=== PATIENT | female | born 1985 | race Caucasian/White ===

== ENCOUNTER 2016-11-13 18:36 | Emergency (ER) | payer OTHER ==
[2016-11-13 18:51] VITALS: BP 136/84
--- NOTE | 2016-11-13 19:20 | UC ---
Back Pain HPI - HPI Summary HPI Summary: 30 yo female with right lower back pain x 1 1/2 weeks Initially intermittent but has been constant x 1 week worse with movement/twisting/bending/lifting hurts to lay flat on her back Pain radiates into right buttock no leg pain no bowel/bladder dysfunction pt works 50 hours/week a lot of lifitng on her feet all day - History of Current Complaint Chief Complaint: UCBackPain Stated Complaint: BACK PAIN, PREG Time Seen by Provider: 11/13/16 18:52 Hx Obtained From: Patient Hx Last Menstrual Period: 4 weeks ago ?: Yes Onset/Duration: Gradual Onset, Lasting Weeks Timing: Constant Severity Initially: Mild Severity Currently: Severe Pain Intensity: 7 Pain Scale Used: 0-10 Numeric Back Pain: Is Discrete @ Character: Dull, Aching, Spasmodic Aggravating: Movement, Lifting, Bending Alleviating: OTC Meds - tylenol use to help..no more Associated Signs And Symptoms: Positive: Negative - Allergies/Home Medications Allergies/Adverse Reactions: Allergies Allergy/AdvReac Type Severity Reaction Status Date / Time Cefaclor [From Ceclor] Allergy Intermediate Hives Verified 11/13/16 18:42 Penicillins Allergy Intermediate Hives Verified 11/13/16 18:42 Home Medications: Home Medications Vitamin TAB* 1 tab PO DAILY 11/13/16 [History Confirmed 11/13/16] PMH/Surg Hx/FS Hx/Imm Hx Previously Healthy: Yes Endocrine History Of: Denies: Diabetes, Thyroid Disease Cardiovascular History Of: Denies: Cardiac Disorders, Hypertension, Pacemaker/ICD Respiratory History Of: Denies: COPD, Asthma GI/ History Of: Denies: Ulcer - Surgical History Surgical History: Yes Surgery Procedure, Year, and Place: T&A - Family History Known Family History: Positive: Cardiac Disease, Hypertension, Other - thyroid dz - Social History Alcohol Use: None Substance Use Type: None Smoking Status (MU): Current Every Day Smoker Type: Cigarettes Amount Used/How Often: 1/2 PPD Length of Time of Smoking/Using Tobacco: 8 yrs Have You Smoked in the Last Year: Yes Household Exposure Type: Cigarettes - Immunization History Most Recent Influenza Vaccination: NONE Most Recent Tetanus Shot: UTD Most Recent Pneumonia Vaccination: None Hx Tetanus, Diphtheria Vaccination: Yes Vaccination Up to Date: Yes Review of Systems Constitutional: Negative Skin: Negative Eyes: Negative ENT: Negative Respiratory: Negative Cardiovascular: Negative Gastrointestinal: Negative Genitourinary: Negative Motor: Negative Neurovascular: Negative Musculoskeletal: Myalgia Neurological: Negative Psychological: Negative All Other Systems Reviewed And Are Negative: Yes Physical Exam Triage Information Reviewed: Yes Appearance: Well-Appearing, No Pain Distress, Well-Nourished Vital Signs: Initial Vital Signs Temp 97.3 F 11/13/16 18:43 Pulse 94 11/13/16 18:43 Resp 18 11/13/16 18:43 BP 136/84 11/13/16 18:43 Pulse Ox 100 11/13/16 18:43 Vital Signs Reviewed: Yes Eyes: Positive: Conjunctiva Clear ENT: Positive: Hearing grossly normal. Negative: Nasal congestion, Nasal drainage, Trismus, Muffled/hoarse voice Neck: Positive: Supple, Nontender, No Lymphadenopathy Respiratory: Positive: Lungs clear, Normal breath sounds, No respiratory distress, No accessory muscle use Cardiovascular: Positive: RRR, No Murmur. Negative: Tachycardia, Bradycardia Abdomen Description: Positive: Other: - gravid uterus, non tender. Negative: CVA Tenderness (R), CVA Tenderness (L) Musculoskeletal: Positive: Edema @ - some pretibial edema Neurological: Positive: Alert Psychological Exam: Normal Skin Exam: Normal Back Pain Course/Dx - Differential Dx/Diagnosis Provider Diagnoses: right lumbar myofascial strain/spasm Discharge - Discharge Plan Condition: Stable Disposition: HOME Prescriptions: HYDROcodone/ACETAMIN 5-325 MG* [[place] 5-325 TAB*] 1 tab PO Q4H PRN #12 tab MDD 2 PRN Reason: Pain Patient Education Materials: Back Pain (ED) Forms: *Work Release Referrals: Gisele Kovacs MD [Primary Care Provider] - Additional Instructions: I think that a few days off from work will be very beneficial see your OB in 5 days as planned recheck for worsening pain/fever/abd pain or contractions the vicodin has tylenol in it so don't take tylenol at the same time Images Front/Back of Body, Lg ([place]): 1 - tender here 2 - pain into buttock as well
== END 2016-11-13 19:38 | disposition home or self-care (01) ==
LOC: UCEAST 18:36
DX: O26.899 Other specified pregnancy related conditions, unspecified trimester (principal); Z3A.00 Weeks of gestation of pregnancy not specified; S39.012A Strain of muscle, fascia and tendon of lower back, initial encounter; X50.9XXA Other and unspecified overexertion or strenuous movements or postures, initial encounter; Y93.9 Activity, unspecified; Y92.9 Unspecified place or not applicable; Y99.0 Civilian activity done for income or pay; M62.830 Muscle spasm of back; Z88.1 Allergy status to other antibiotic agents; Z88.0 Allergy status to penicillin; F17.210 Nicotine dependence, cigarettes, uncomplicated
CPT/HCPCS: 81003; 99212; G0463

== ENCOUNTER 2016-12-14 22:31 | Emergency (ER) | payer OTHER ==
[2016-12-14 22:36] VITALS: BP 141/84
--- NOTE | 2016-12-15 00:54 | ED ---
- HPI Summary HPI Summary: Patient presents with intermittent abdominal cramping since yesterday. The episodes last seconds and resolve spontaneously. She denies vaginal bleeding, N/ V/D, SOB, CP, GALAN or fevers. The baby usually moves more when she drinks orange juice, but it didn't today so she became concerned. - History of Current Complaint Chief Complaint: EDOBProblems Stated Complaint: 25 WKS PREG/CRAMPING Time Seen by Provider: 12/14/16 23:48 Hx Obtained From: Patient Chief Complaint: Other: - cramping Onset/Duration: Started Days Ago - 2, Atraumatic Timing: Intermittent, Lasting Seconds Severity: Moderate Current Severity: None Pain Intensity: 8 Location of Pain: Diffuse Character: Cramping Aggravating Factors: Nothing Alleviating Factors: Nothing Associated Signs and Symptoms: Positive: Negative - Assessment Hx Now: Yes Heart Rate via Doppler: 146 SAB: 1 - Allergies/Home Medications Allergies/Adverse Reactions: Allergies Allergy/AdvReac Type Severity Reaction Status Date / Time Cefaclor [From Ceclor] Allergy Intermediate Hives Verified 12/14/16 22:37 Penicillins Allergy Intermediate Hives Verified 12/14/16 22:37 PMH/Surg Hx/FS Hx/Imm Hx Previously Healthy: Yes Endocrine/Hematology History: Denies: Hx Diabetes, Hx Thyroid Disease Cardiovascular History: Denies: Hx Hypertension, Hx Pacemaker/ICD Respiratory History: Denies: Hx Asthma, Hx Chronic Obstructive Pulmonary Disease (COPD) GI History: Denies: Hx Ulcer Sensory History: Denies: Hx Hearing Aid Psychiatric History: Denies: Hx Panic Disorder - Surgical History Surgery Procedure, Year, and Place: T&A Infectious Disease History: No Infectious Disease History: Denies: Hx Clostridium Difficile, Hx Hepatitis, Hx Human Immunodeficiency Virus (HIV), Hx of Known/Suspected MRSA, Hx Shingles, Hx Tuberculosis, Hx Known/ Suspected VRE, Hx Known/Suspected VRSA, History Other Infectious Disease, Traveled Outside the [place] in Last 30 Days - Family History Known Family History: Positive: Unknown, Cardiac Disease, Hypertension, Other - thyroid dz - Social History Occupation: Employed Full-time Lives: With Family Alcohol Use: None Substance Use Type: Reports: None Smoking Status (MU): Current Every Day Smoker Type: Cigarettes Amount Used/How Often: 1/2 PPD Length of Time of Smoking/Using Tobacco: 8 yrs Have You Smoked in the Last Year: Yes Cessation Counseling: Patient Advised to Stop Review of Systems Positive: Other - cramping All Other Systems Reviewed And Are Negative: Yes Physical Exam - Summary Physical Exam Summary: Maternal health evaluated heart tones, which were within normal limits, and no contractions were appreciated during evaluation. - Physical Exam Triage Information Reviewed: Yes Vital Signs Reviewed: Yes Appearance: Positive: Well-Appearing, No Pain Distress, Obese Skin: Positive: Warm, Skin Color Reflects Adequate Perfusion, Dry, Soft Head/Face: Positive: Normal Head/Face Inspection Eyes: Positive: EOMI, DAMI, Conjunctiva Clear ENT: Positive: Hearing grossly normal Respiratory/Lung Sounds: Positive: Clear to Auscultation, Breath Sounds Present Cardiovascular: Positive: RRR Abdomen Description: Positive: Nontender, Soft Bowel Sounds: Positive: Present Musculoskeletal: Negative: Edema Left, Edema Right Neurological: Positive: Sensory/Motor Intact, Alert, Oriented to Person Place, Time, NV Bundle Intact Distally Psychiatric: Positive: Affect/Mood Appropriate AVPU Assessment: Alert Diagnostics - Vital Signs Vital Signs Temp Pulse Resp BP Pulse Ox 12/14/16 22:33 96.9 F 110 15 141/84 100 - Laboratory Lab Statement: Any lab studies that have been ordered have been reviewed, and results considered in the medical decision making process. Course/Dx - Differential Diagnosis/HQI/PQRI: Threatened , /Embryonic Demise, Placenta Previa, Late , Pre-term Labor, Vaginal Bleeding - Diagnoses Provider Diagnoses: with abdominal cramping of lower quadrant, antepartum Discharge - Discharge Plan Condition: Stable Disposition: HOME Forms: *Work Release Referrals: Gisele Kovacs MD [Primary Care Provider] - Additional Instructions: Please call your NET W[facility]ER tomorrow morning to discuss your visit and whether you need further evaluation. Return to the emergency department if symptoms worsen.
== END 2016-12-15 00:50 | disposition home or self-care (01) ==
LOC: ED 22:31
DX: O26.92 Pregnancy related conditions, unspecified, second trimester (principal); Z3A.25 25 weeks gestation of pregnancy; F17.210 Nicotine dependence, cigarettes, uncomplicated
CPT/HCPCS: 99281

== ENCOUNTER 2017-03-10 11:36 | Inpatient (IN) | payer OTHER ==
[2017-03-10 12:05] LABS: ROM Internal QC QC Line Present
[2017-03-10] MEDS ORDERED: Misoprostol TAB* 100 MCG PO ONE (13:20)
[2017-03-10 13:41] LABS: Hematocrit 36 % (35-47); Mean Corpuscular HGB Conc 33 g/dl (31-36); Mean Corpuscular Hemoglobin 30 pg (27-31); Mean Corpuscular Volume 90 fL (80-97); Mean Platelet Volume 10 um3 (7.4-10.4); Red Blood Count 4.06 10^6/ul (4.0-5.4); Red Cell Distribution Width 13 % (10.5-15); White Blood Count 15.5 10^3/ul (3.5-10.8)
[2017-03-10] MEDS ORDERED: Oxytocin in LR* 20 UNITS/1,000 ML BAG IVPB ONE (19:54)
[2017-03-10] MEDS ORDERED: Oxytocin in LR* 20 UNITS/1,000 ML BAG IVPB SCH (20:00)
[2017-03-10] MEDS ORDERED: OBEPIDURAL* 250 ML ONE (22:57)
[2017-03-11] MEDS ORDERED: Phenylephrine IV* 40 MCG/ML 10 ML SYRINGE IV PUSH PRN ×2 (00:31)
[2017-03-11] MEDS ORDERED: EPHEDrine (Pressors)* 50 MG/ML VIAL IV PUSH PRN ×2 (00:31)
[2017-03-11] MEDS ORDERED: Hetastarch in NS* 200 ML IV PRN (00:31)
[2017-03-11] MEDS ORDERED: OBEPIDURAL* 250 ML EPIDURAL SCH (01:00)
[2017-03-11] MEDS ORDERED: Misoprostol TAB* 200 MCG ONE (08:30)
[2017-03-11] MEDS ORDERED: Acetaminophen TAB* 325 MG PO PRN (08:37)
[2017-03-11] MEDS ORDERED: Witch Hazel PAD* JAR TOPICAL PRN (08:37)
[2017-03-11] MEDS ORDERED: Misoprostol TAB* 200 MCG PR ONE (08:37)
[2017-03-11] MEDS ORDERED: Glycerin ADULT SUPP PR PRN (08:37)
[2017-03-11] MEDS ORDERED: Oxytocin in LR* 20 UNITS/1,000 ML BAG IVPB SCH (09:00)
[2017-03-11] MEDS: Docusate CAP* 100 MG PO SCH ×3 (11:38→21:42)
[2017-03-11] MEDS: Prenatal Vitamin TAB PO SCH (11:38)
[2017-03-11] MEDS ORDERED: Simethicone CHEW TAB* 80 MG PO SCH (12:30)
[2017-03-11] MEDS: Ibuprofen TAB* 600 MG PO PRN ×2 (12:54→21:42)
[2017-03-11] MEDS: Dibucaine 1% 28.35 GM TUBE PR PRN (21:48)
[2017-03-12] MEDS: Ibuprofen TAB* 600 MG PO PRN ×3 (04:13→16:11)
[2017-03-12 06:40] LABS: Hematocrit 24 % (35-47); Hemoglobin 7.9 g/dl (12.0-16.0); Mean Corpuscular HGB Conc 33 g/dl (31-36); Mean Corpuscular Hemoglobin 30 pg (27-31); Mean Corpuscular Volume 90 fL (80-97); Mean Platelet Volume 9 um3 (7.4-10.4); Red Blood Count 2.64 10^6/ul (4.0-5.4); Red Cell Distribution Width 13 % (10.5-15); White Blood Count 16.2 10^3/ul (3.5-10.8)
[2017-03-12] MEDS: Docusate CAP* 100 MG PO SCH ×3 (10:06→22:34)
[2017-03-12] MEDS: Prenatal Vitamin TAB PO SCH (10:07)
[2017-03-12] MEDS: Ferrous Gluconate TAB* 324 MG TAB PO SCH ×2 (10:07→22:34)
[2017-03-12] MEDS: Dibucaine 1% 28.35 GM TUBE PR PRN (22:40)
[2017-03-13] MEDS: Ibuprofen TAB* 600 MG PO PRN ×2 (00:09→09:09)
[2017-03-13 07:51] VITALS: BP 108/74
[2017-03-13] MEDS: Ferrous Gluconate TAB* 324 MG TAB PO SCH (09:09)
[2017-03-13] MEDS: Docusate CAP* 100 MG PO SCH (09:09)
[2017-03-13] MEDS: Prenatal Vitamin TAB PO SCH (09:10)
== END 2017-03-13 10:55 | disposition home or self-care (01) | DRG 560 ==
LOC: MCHOBOUT 11:36 → MCHOB 12:22
PROVIDERS: ADMIT Obstetrics & Gynecology; ATTEND Obstetrics & Gynecology
PROC: 10E0XZZ Delivery of Products of Conception, External Approach (ICD-10-PCS; principal; 2017-03-11)
DX: O42.92 Full-term premature rupture of membranes, unspecified as to length of time between rupture and onset of labor (principal); O72.1 Other immediate postpartum hemorrhage; Z68.41 Body mass index [BMI] 40.0-44.9, adult; E66.01 Morbid (severe) obesity due to excess calories; O99.344 Other mental disorders complicating childbirth; O70.0 First degree perineal laceration during delivery; O99.334 Smoking (tobacco) complicating childbirth; F17.210 Nicotine dependence, cigarettes, uncomplicated; O99.214 Obesity complicating childbirth; F41.9 Anxiety disorder, unspecified; D64.9 Anemia, unspecified; O90.81 Anemia of the puerperium; Z3A.37 37 weeks gestation of pregnancy; Z37.0 Single live birth
CPT/HCPCS: 36415; 84112; 85025; 86850; 86900; 86901; A9270-GY; S0191

== ENCOUNTER 2018-01-29 16:03 | Emergency (ER) | payer OTHER ==
[2018-01-29 16:49] LABS: Hematocrit 41 % (35-47); Hemoglobin 13.6 g/dl (12.0-16.0); Mean Corpuscular HGB Conc 33 g/dl (31-36); Mean Corpuscular Hemoglobin 28 pg (27-31); Mean Corpuscular Volume 85 fL (80-97); Platelet Count 365 10^3/ul (150-450); Red Blood Count 4.81 10^6/ul (4.0-5.4); Red Cell Distribution Width 14 % (10.5-15); White Blood Count 8.9 10^3/ul (3.5-10.8)
[2018-01-29 17:05] LABS: EGFR Non-African American 101.6 (>60)
--- NOTE | 2018-01-29 18:49 | RAD ---
HISTORY: Vaginal bleeding and positive test in a woman with an IUD COMPARISONS: CT abdomen pelvis April 20, 2016 TECHNIQUE: Multiple transverse and longitudinal ultrasound images were obtained of the pelvis using grayscale, color flow, spectral and M-mode sonographic imaging. FINDINGS: UTERUS: The uterus is normal in shape, size, contour, and echotexture measuring 8.8 x 3.5 x 4.6 cm. The intrauterine device is at the mid-level and lower uterine segment abutting the cervix. GESTATION: There is no intrauterine gestation or gestational sac seen. RIGHT OVARY: The right ovary measures 2.6 x 1.6 x 2.0 cm. LEFT OVARY: The left ovary measures 2.7 x 1.5 x 2.1 cm. IMPRESSION: 1. No intrauterine gestation or gestational sac visualized. Ectopic is not completely excluded particularly in the presence of persistent positive beta-hCG. 2. The intrauterine device is located at the lower uterine segment abutting the cervix.
[2018-01-29] MEDS ORDERED: Methotrexate* 25 MG/ML 4 ML VIAL IM ONE (19:00)
[2018-01-29 20:55] VITALS: BP 138/85
--- NOTE | 2018-02-02 07:52 | ED ---
Solomon Alvarez Angela, scribed for Mitchel Egan MD on 01/29/18 at 1622 . GI/ HPI - HPI Summary HPI Summary: This pt is a 32 y/o female, possibly , presenting to [facility] c/o vaginal bleeding for a few days now. Pt reports she took a test 11 days ago and was slight positive. Pt went to [facility] and was told she was slight positive as well. Pt had blood work done 8 days ago and 6 days ago. She was told her hormone levels stayed around the same both of these days. Pt was told to come to the ED as soon as possible after another blood work done yesterday to rule out ectopic . Pt c/o fatigue, mild abdominal cramping , and some back pain. Denies dysuria, fever, chills, diaphoresis. Pt has an IUD in place. IUD was placed approx 7 months ago (3 months after her daughter was born). She had a sonogram done and was told they couldn't find where the IUD is supposed to connect, but the IUD was visible. Pt reports her last period was on December 18 but states it was not a normal period. Denies FHx of ectopic or tubal . Pt is a current tobacco user but denies alcohol use. - History of Current Complaint Chief Complaint: EDVaginalBleeding Stated Complaint: CRAMPING Hx Obtained From: Patient Hx Last Menstrual Period: 4 weeks ago Onset/Duration: Started Days Ago, Still Present Timing: Lasting Days Current Severity: Mild Vaginal Bleeding Description: Bright Red Pain Intensity: 1 Location of Pain: Diffuse Associated Signs and Symptoms: Positive: Back Pain, Abdominal Pain, Other: - POS : fatigue. Negative: Fever, Dysuria, Chills Additional Signs & Symptoms: Positive: Vaginal Bleeding, Positive Test , IUD Aggravating Factor(s): Nothing Alleviating Factor(s): Nothing - Allergy/Home Medications Allergies/Adverse Reactions: Allergies Allergy/AdvReac Type Severity Reaction Status Date / Time cefaclor [From [facility]] Allergy Hives Verified 01/29/18 18:21 Penicillins Allergy Hives Verified 01/29/18 18:21 Home Medications: Home Medications NK [No Home Medications Reported] 01/29/18 [History Confirmed 01/29/18] PMH/Surg Hx/FS Hx/Imm Hx Endocrine/Hematology History: Denies: Hx Diabetes, Hx Thyroid Disease Cardiovascular History: Denies: Hx Hypertension, Hx Pacemaker/ICD Respiratory History: Denies: Hx Asthma, Hx Chronic Obstructive Pulmonary Disease (COPD) GI History: Denies: Hx Ulcer Sensory History: Denies: Hx Hearing Aid Psychiatric History: Denies: Hx Panic Disorder - Surgical History Surgery Procedure, Year, and Place: T&A Infectious Disease History: No Infectious Disease History: Denies: Hx Clostridium Difficile, Hx Hepatitis, Hx Human Immunodeficiency Virus (HIV), Hx of Known/Suspected MRSA, Hx Shingles, Hx Tuberculosis, Hx Known/ Suspected VRE, Hx Known/Suspected VRSA, History Other Infectious Disease, Traveled Outside the [place] in Last 30 Days - Family History Known Family History: Positive: Cardiac Disease, Hypertension, Other - thyroid dz Family History: No FHx of ectopic . - Social History Alcohol Use: None Substance Use Type: Reports: None Smoking Status (MU): Current Every Day Smoker Type: Cigarettes Amount Used/How Often: 1/2 PPD Length of Time of Smoking/Using Tobacco: 8 yrs Have You Smoked in the Last Year: Yes Review of Systems Positive: Fatigue. Negative: Fever, Chills, Skin Diaphoresis Negative: Erythema Negative: Sore Throat Negative: Chest Pain Negative: Shortness Of Breath, Cough Positive: Abdominal Pain - cramping. Negative: Vomiting, Nausea Genitourinary: Other - vaginal bleeding Negative: dysuria, hematuria Musculoskeletal: Other - back pain Negative: Myalgia, Edema Negative: Rash Neurological: Other - NEG: dizziness All Other Systems Reviewed And Are Negative: Yes Physical Exam - Summary Physical Exam Summary: Constitutional: Well-developed, Well-nourished, Alert. (-) Distressed Skin: Warm, Dry HENT: Normocephalic; Atraumatic Eyes: Conjunctiva normal Neck: Musculoskeletal ROM normal neck. (-) JVD, (-) Stridor, (-) Tracheal deviation Cardio: Rhythm regular, rate normal, Heart sounds normal; Intact distal pulses; The pedal pulses are 2+ and symmetric. Radial pulses are 2+ and symmetric. (-) Murmur Pulmonary/Chest wall: Effort normal. (-) Respiratory distress, (-) Wheezes, (-) Rales Abd: Soft, (-) Tenderness, (-) Distension, (-) Guarding, (-) Rebound Musculoskeletal: (-) Edema Lymph: (-) Cervical adenopathy Neuro: Alert, Oriented x3 Psych: Mood and affect Normal Triage Information Reviewed: Yes Vital Signs On Initial Exam: Initial Vitals Temp Pulse Resp BP Pulse Ox 97.8 F 88 18 130/95 99 01/29/18 16:05 01/29/18 16:05 01/29/18 16:05 01/29/18 16:05 01/29/18 16:05 Vital Signs Reviewed: Yes Diagnostics - Vital Signs Vital Signs Temp Pulse Resp BP Pulse Ox 01/29/18 16:05 97.8 F 88 18 130/95 99 - Laboratory Result Diagrams: 01/29/18 16:36 01/29/18 16:36 Lab Statement: Any lab studies that have been ordered have been reviewed, and results considered in the medical decision making process. - Ultrasound No standard instances Ultrasound Interpretation: Positive (See Comments) - Transvaginal US IMPRESSION : 1. No intrauterine gestation or gestational sac visualized. Ectopic is not completely excluded particularly in the presence of persistent positive beta-hCG. 2. The intrauterine device is located at the lower uterine segment abutting the cervix. Dr. Egan has reviewed this radiology report. Ultrasound Interpretation Completed By: Radiologist Re-Evaluation - Re-Evaluation First Eval Re-Evaluation Time: 17:18 Comment: I updated the pt on her results. GIGU Course/Dx - Course Assessment/Plan: Pt is a 32 y/o female, possibly , presenting to [facility] c /o vaginal bleeding for a few days now. Pt reports she took a test 11 days ago and was slight positive. [facility] and was told she was slight positive as well. Pt had blood work done and had her hormone levels stay the same. Pt was told to come to the ED as soon as possible after blood work. Pt c/o fatigue, mild abdominal cramping, and some back pain. Denies dysuria, fever, chills, diaphoresis. Labs shows beta HCG of 1204. Transvaginal US shows 1. No intrauterine gestation or gestational sac visualized. Ectopic is not completely excluded particularly in the presence of persistent positive beta-hCG. 2. The intrauterine device is located at the lower uterine segment abutting the cervix. I discussed pt care with Dr. Mireles, OB, who recommends Methotrexate to abort ectopic . Pt is to follow up on 02/02/18, with GINNY Day. Type and screen was also ordered for the pt. Pt will be discharged home with follow up from Dr. Mireles. - Diagnoses Provider Diagnoses: Ectopic - Physician Notifications Discussed Care Of Patient With: Jaida Mireles Time Discussed With Above Provider: 18:56 Instructed by Provider To: Other - I discussed pt care with GINNY Day, who recommends Methotrexate to abort ectopic . Pt is to follow up on Thursday with him. Discharge - Sign-Out/Discharge Documenting (check all that apply): Discharge/Admit/Transfer - Discharge - Discharge Plan Condition: Stable Disposition: HOME Patient Education Materials: Ectopic (DC) Referrals: No Primary Care Phys,NOPCP [Primary Care Provider] - Jaida Mireles MD [Medical Doctor] - Additional Instructions: Follow up with GINNY Day, on Thursday (02/02/18). RETURN TO THE EMERGENCY DEPARTMENT FOR CHANGING OR WORSENING SYMPTOMS. The documentation as recorded by the Solomon clement Angela accurately reflects the service I personally performed and the decisions made by me, Mitchel Egan MD.
== END 2018-01-29 20:46 | disposition home or self-care (01) ==
LOC: ED 16:03
DX: O00.90 Unspecified ectopic pregnancy without intrauterine pregnancy (principal); Z97.5 Presence of (intrauterine) contraceptive device; R53.83 Other fatigue; Z88.1 Allergy status to other antibiotic agents; Z88.0 Allergy status to penicillin; Z82.49 Family history of ischemic heart disease and other diseases of the circulatory system; F17.210 Nicotine dependence, cigarettes, uncomplicated
CPT/HCPCS: 36415; 76817; 80053; 84702; 85027; 86850; 86900; 86901; 96372; 99282; J9260

== ENCOUNTER 2018-04-28 11:11 | Emergency (ER) | payer MEDICAID ==
[2018-04-28 11:20] VITALS: BP 114/74
--- NOTE | 2018-04-28 11:48 | UC ---
Eye Complaint HPI - HPI Summary HPI Summary: A 32 y/o F presents to [facility] [place] c/o L eye pain onset two days ago and worsening. Pain described as burning. Associated sx: itching, discharge and erythema of L eye; swelling of L lower eyelid; mild rhinorrhea, mild cough. Denies ear pain. She states it hurts to have her eye open. Alleviating factors: closing her eye. She denies eye trauma but notes mowing the lawn a few days ago. She initially believed the eye pain sx were due to seasonal allergies. Denies taking daily medications. - History of Current Complaint Chief Complaint: UCEye Stated Complaint: EYE COMPLAINT Time Seen by Provider: 04/28/18 11:42 Hx Obtained From: Patient Hx Last Menstrual Period: on depo Onset/Duration: Gradual Onset, Lasting Days, Still Present Timing: Constant Severity Initially: Moderate Severity Currently: Moderate Pain Intensity: 6 Pain Scale Used: 0-10 Numeric Location of Injury: Conjunctiva, Eye Lid (lower) Alleviating Factor(s): Other - closing her L eye Associated Signs And Symptoms: Positive: Drainage (Clear), Swelling - L lower eye lid - Allergies/Home Medications Allergies/Adverse Reactions: Allergies Allergy/AdvReac Type Severity Reaction Status Date / Time cefaclor [From [facility]] Allergy Hives Verified 04/28/18 11:20 Penicillins Allergy Hives Verified 04/28/18 11:20 PMH/Surg Hx/FS Hx/Imm Hx Previously Healthy: Yes Other Cardiovascular History: neg: HTN Other Respiratory History: neg: COPD - Surgical History Surgical History: Yes Surgery Procedure, Year, and Place: T&A - Family History Known Family History: Positive: Cardiac Disease, Hypertension, Other - thyroid dz Family History: No FHx of ectopic . - Social History Occupation: Employed Full-time Lives: With Family Alcohol Use: None Substance Use Type: None Smoking Status (MU): Light Every Day Tobacco Smoker Type: Cigarettes Amount Used/How Often: 1/2 PPD Length of Time of Smoking/Using Tobacco: 8 yrs Have You Smoked in the Last Year: Yes Household Exposure Type: Cigarettes - Immunization History Most Recent Influenza Vaccination: NONE Most Recent Tetanus Shot: UTD Most Recent Pneumonia Vaccination: None Hx Tetanus, Diphtheria Vaccination: Yes Vaccination Up to Date: Yes Review of Systems Constitutional: Other - neg: fever Eyes: Drainage - L eye, Eye Redness - L eye, Other - pos: L lower eyelid swelling; L eye itching and pain ENT: Nasal Discharge, Other - neg: ear pain Respiratory: Cough All Other Systems Reviewed And Are Negative: Yes Physical Exam - Summary Physical Exam Summary: General: well-appearing, no pain distress Skin: warm, color reflects adequate perfusion, dry Head: normal Eyes: EOMI, DAMI, sclera injected in L eye, L lower eyelid has minimal swelling , no erythema in eyelid ENT: normal Neck: supple, nontender Respiratory: CTA, breath sounds present Cardiovascular: RRR Abdomen: soft, nontender Bowel: present Musculoskeletal: normal, strength/ROM intact Neurological: sensory/motor intact, A&O x3 Psychological: affect/mood appropriate Triage Information Reviewed: Yes Vital Signs: Initial Vital Signs Temp 98.1 F 04/28/18 11:16 Pulse 83 04/28/18 11:16 Resp 18 04/28/18 11:16 BP 114/74 04/28/18 11:16 Pulse Ox 99 04/28/18 11:16 Vital Signs Reviewed: Yes Eye Complaint Course/Dx - Course Course Of Treatment: BP noted. Medications reviewed. Allergies noted. NO F/B ON EXAM. F/U OPHTHALMOLOGY IF NOT IMPROVED. - Differential Dx/Diagnosis Provider Diagnoses: CONJUNCTIVITIS Discharge - Sign-Out/Discharge Documenting (check all that apply): Patient Departure - DC All imaging exams completed and their final reports reviewed: No Studies - Discharge Plan Condition: Stable Disposition: HOME Prescriptions: Ketotifen Fumarate [Allergy Eye Drops] 1 drop OP TID #5 ml Tobramycin 0.3% OPHTH.MUKUND* 1 drop LEFT EYE Q4H #1 btl Patient Education Materials: Conjunctivitis (ED) Referrals: [facility] PH[facility]ICIAN REFERRAL [Outside] German De Leon MD [Medical Doctor] - Additional Instructions: FOLLOW UP WITH YOUR PRIMARY CARE DOCTOR OR ORTHOPEDIC DESIGNER IF NOT COMPLETELY IMPROVED. GET RECHECKED FOR ANY WORSENING OF YOUR CONDITION; PAIN, VISION PROBLEMS, INCREASED REDNESS OR QUESTIONS OR CONCERNS. - Billing Disposition and Condition Condition: STABLE Disposition: Home - Attestation Statements Document Initiated by Scribe: Yes Documenting Scribe: Vandana Martinez Provider For Whom Scribe is Documenting (Include Credential): Ronnie Newsome MD Scribe Attestation: Vandana Alvarez scribed for Ronnie Newsome MD on 04/28/18 at 1206. Scribe Documentation Reviewed: Yes Provider Attestation: The documentation as recorded by the scribe, Vandana Martinez accurately reflects the service I personally performed and the decisions made by me, Ronnie Newsome MD
== END 2018-04-28 12:02 | disposition home or self-care (01) ==
LOC: UCEAST 11:11
DX: H10.9 Unspecified conjunctivitis (principal); R05 Cough; F17.210 Nicotine dependence, cigarettes, uncomplicated; Z88.0 Allergy status to penicillin; Z88.1 Allergy status to other antibiotic agents
CPT/HCPCS: 99212; G0463

== ENCOUNTER 2018-06-01 08:39 | Emergency (ER) | payer MEDICAID, OTHER ==
[2018-06-01 08:58] VITALS: BP 140/76
--- NOTE | 2018-06-01 09:37 | UC ---
Throat Pain/Nasal Ashwin HPI - HPI Summary HPI Summary: 32-year-old woman coming in here today with 2 weeks of upper respiratory tract infection symptoms that have now gone into her chest. Started with a runny nose sore throat dry cough. Over time the congestion is moved and anterior chest and now she is having wheezing and rhonchi. She's recently had fevers. The [id number] medications are not helping. She is a smoker. - History of Current Complaint Chief Complaint: UCGeneralIllness Stated Complaint: CHEST CONGESTION, AND FEVER Time Seen by Provider: 06/01/18 09:25 Hx Last Menstrual Period: deposhot Pain Intensity: 0 - Allergies/Home Medications Allergies/Adverse Reactions: Allergies Allergy/AdvReac Type Severity Reaction Status Date / Time cefaclor [From Ceclor] Allergy Hives Verified 06/01/18 08:58 Penicillins Allergy Hives Verified 06/01/18 08:58 Home Medications: Home Medications Acetaminophen [Tylenol Extra Strength] 2 tab PO BID PRN 06/01/18 [History Confirmed 06/01/18] Ibuprofen 1,000 mg PO TID PRN 06/01/18 [History Confirmed 06/01/18] PMH/Surg Hx/FS Hx/Imm Hx Previously Healthy: Yes - Surgical History Surgical History: Yes Surgery Procedure, Year, and Place: T&A - Family History Known Family History: Positive: Cardiac Disease, Hypertension, Other - thyroid dz Family History: No FHx of ectopic . - Social History Alcohol Use: None Substance Use Type: None Smoking Status (MU): Light Every Day Tobacco Smoker Type: Cigarettes Amount Used/How Often: 1/2 PPD Length of Time of Smoking/Using Tobacco: 8 yrs Have You Smoked in the Last Year: Yes Household Exposure Type: Cigarettes - Immunization History Most Recent Influenza Vaccination: NONE Most Recent Tetanus Shot: UTD Most Recent Pneumonia Vaccination: None Hx Tetanus, Diphtheria Vaccination: Yes Vaccination Up to Date: Yes Review of Systems Constitutional: Fever, Chills Skin: Negative Eyes: Negative ENT: Sore Throat, Nasal Discharge, Sinus Congestion Respiratory: Shortness Of Breath, Cough, Other - WHEEZING Cardiovascular: Negative Gastrointestinal: Negative Motor: Negative Neurovascular: Negative Musculoskeletal: Negative Neurological: Negative Psychological: Negative Is Patient Immunocompromised?: No All Other Systems Reviewed And Are Negative: Yes Physical Exam Triage Information Reviewed: Yes Appearance: No Pain Distress, Well-Nourished, Ill-Appearing - MILD Vital Signs: Initial Vital Signs Temp 97.5 F 06/01/18 08:53 Pulse 92 06/01/18 08:53 Resp 20 06/01/18 08:53 BP 140/76 06/01/18 08:53 Pulse Ox 96 06/01/18 08:53 Vital Signs Reviewed: Yes Eye Exam: Normal ENT: Positive: Pharyngeal erythema, Nasal congestion, Nasal drainage, TMs normal Neck exam: Normal Neck: Positive: Supple Respiratory: Positive: No respiratory distress, Rhonchi, Wheezing Cardiovascular Exam: Normal Cardiovascular: Positive: RRR Musculoskeletal Exam: Normal Musculoskeletal: Positive: Strength Intact, ROM Intact Neurological Exam: Normal Neurological: Positive: Alert Psychological Exam: Normal Psychological: Positive: Age Appropriate Behavior Skin Exam: Normal Throat Pain/Nasal Course/Dx - Course Course Of Treatment: SX > 10 DAYS - Differential Dx/Diagnosis Provider Diagnoses: BRONCHITIS WITH BRONCHOSPASM Discharge - Sign-Out/Discharge Documenting (check all that apply): Patient Departure All imaging exams completed and their final reports reviewed: No Studies - Discharge Plan Condition: Stable Disposition: HOME Prescriptions: Albuterol HFA INHALER* [Ventolin HFA Inhaler*] 2 puff INH Q4H PRN #1 mdi PRN Reason: Wheezing Azithromyxin CHEYANNE (NF) [Z-Cheyanne (Zithromax) 250 mg tabs #6] 2 tab PO .TODAY, THEN 1 DAILY #6 tab Patient Education Materials: Acute Bronchitis (ED), Bronchospasm (ED), Wheezing (ED) Referrals: [facility] [Outside] Additional Instructions: FOLLOW UP WITH YOUR DOCTOR IF NOT COMPLETELY IMPROVED. GET RECHECKED FOR ANY WORSENING OF YOUR CONDITION OR QUESTIONS OR CONCERNS. - Billing Disposition and Condition Condition: STABLE Disposition: Home
== END 2018-06-01 09:47 | disposition home or self-care (01) ==
LOC: UCEAST 08:39
DX: J40 Bronchitis, not specified as acute or chronic (principal); J98.01 Acute bronchospasm; F17.210 Nicotine dependence, cigarettes, uncomplicated; Z88.1 Allergy status to other antibiotic agents; Z88.0 Allergy status to penicillin
CPT/HCPCS: 99212; G0463

== ENCOUNTER 2018-10-15 07:46 | Emergency (ER) | payer OTHER ==
[2018-10-15 08:00] VITALS: BP 132/88
--- NOTE | 2018-10-15 08:44 | UC ---
Respiratory Complaint HPI - HPI Summary HPI Summary: 1 week of cough, congestion and intermittent low-grade fevers up to 101. Cough is keeping her up at night. - History of Current Complaint Chief Complaint: UCRespiratory Stated Complaint: COLD AND ARMIDA Time Seen by Provider: 10/15/18 08:06 Hx Obtained From: Patient Hx Last Menstrual Period: 6 months ago Onset/Duration: Gradual Onset, Lasting Days, Still Present Timing: Constant Severity Initially: Moderate Severity Currently: Moderate Pain Intensity: 2 Pain Scale Used: 0-10 Numeric Character: Cough: Nonproductive Aggravating Factors: Nothing Alleviating Factors: Nothing Associated Signs And Symptoms: Positive: Fever, Chills, URI, Nasal Congestion. Negative: Dyspnea, Wheezing - Allergies/Home Medications Allergies/Adverse Reactions: Allergies Allergy/AdvReac Type Severity Reaction Status Date / Time cefaclor [From [facility]] Allergy Hives Verified 10/15/18 07:56 Penicillins Allergy Hives Verified 10/15/18 07:56 PMH/Surg Hx/FS Hx/Imm Hx Previously Healthy: Yes - Surgical History Surgical History: Yes Surgery Procedure, Year, and Place: T&A - Family History Known Family History: Positive: Cardiac Disease, Hypertension, Other - thyroid dz Family History: No FHx of ectopic . - Social History Alcohol Use: None Substance Use Type: None Smoking Status (MU): Light Every Day Tobacco Smoker Type: Cigarettes Amount Used/How Often: 1/2 PPD Length of Time of Smoking/Using Tobacco: 8 yrs Have You Smoked in the Last Year: Yes Household Exposure Type: Cigarettes - Immunization History Most Recent Influenza Vaccination: NONE Most Recent Tetanus Shot: UTD Most Recent Pneumonia Vaccination: None Hx Tetanus, Diphtheria Vaccination: Yes Vaccination Up to Date: Yes Review of Systems All Other Systems Reviewed And Are Negative: Yes Constitutional: Positive: Fever, Chills, Fatigue ENT: Positive: Nasal Discharge Respiratory: Positive: Cough Cardiovascular: Positive: Negative Gastrointestinal: Positive: Negative Physical Exam Triage Information Reviewed: Yes Appearance: Well-Appearing, No Pain Distress, Well-Nourished Vital Signs: Initial Vital Signs Temp 98 F 10/15/18 07:52 Pulse 112 10/15/18 07:52 Resp 18 10/15/18 07:52 BP 132/88 10/15/18 07:52 Pulse Ox 97 10/15/18 07:52 Vital Signs Reviewed: Yes Eyes: Positive: Conjunctiva Clear ENT: Positive: Hearing grossly normal, Pharynx normal, TMs normal Neck: Positive: Supple, Nontender, No Lymphadenopathy Respiratory Exam: Normal Cardiovascular: Positive: Tachycardia Abdomen Description: Positive: Soft Musculoskeletal: Positive: No Edema Neurological: Positive: Alert Psychological: Positive: Age Appropriate Behavior Skin: Negative: Rashes UC Diagnostic Evaluation - Laboratory O2 Sat by Pulse Oximetry: 97 Respiratory Course/Dx - Course Course Of Treatment: PT SX ARE LIKELY VIRAL. DISCUSSED CXR TODAY BASED ON PERSISTENT COUGH AND REPORT OF INTERMITTENT FEVER. PT DECLINES TODAY WHICH IS REASONABLE. WILL TX WITH AZITH, PREDNISONE, ALBUTEROL AND COUGH MED. PT WILL F/ U IF SX DO NOT IMPROVE WITH THIS TREATMENT. MAY BENEFIT FROM CXR AT THAT TIME. - Differential Dx/Diagnosis Provider Diagnosis: Acute bronchitis Discharge - Sign-Out/Discharge Documenting (check all that apply): Patient Departure All imaging exams completed and their final reports reviewed: No Studies - Discharge Plan Condition: Stable Disposition: HOME Prescriptions: Albuterol HFA INHALER* [Ventolin HFA Inhaler*] 2 puff INH Q4H PRN #1 mdi PRN Reason: Shortness Of Breath Azithromyxin CHEYANNE (NF) [Z-Cheyanne (Zithromax) 250 mg tabs #6] 2 tab PO .TODAY, THEN 1 DAILY #6 tab Codeine Phosphate/Guaifenesin [Codeine-Guaifen 10-100 mg/5 ml] 5 - 10 ml PO Q6H PRN #150 ml MDD 40ML PRN Reason: Cough predniSONE TAB* [Deltasone 20 MG TAB*] 40 mg PO DAILY #10 tab Patient Education Materials: Acute Bronchitis (ED) Referrals: No Primary Care Phys,NOPCP [Primary Care Provider] - Additional Instructions: YOUR SYMPTOMS MAY BE VIRALLY MEDIATED BUT GIVEN THE LENGTH OF TIME YOU HAVE BEEN ILL WE WILL COVER YOU WITH ANTIBIOTICS. IF YOU START THE MEDICINE BE SURE TO TAKE IT FOR THE FULL COURSE. REST, HYDRATE, OTC MEDS NEEDED. WILL ALSO TREAT WITH PREDNISONE AND ALBUTEROL TO HELP WITH AIRWAY INFLAMMATION AND COUGH MEDICINE. SEEK FOLLOW-UP WITH YOUR PCP IF YOU ARE NOT IMPROVING OVER THE NEXT 1- 2 WEEKS. USE OTC AFRIN FOR NASAL CONGESTION. 2 SPRAYS IN EACH NOSTRIL TWICE DAILY NEEDED. DO NOT USE FOR MORE THAN 3-4 DAYS IN A ROW TO PREVENT DEVELOPING REBOUND CONGESTION. - Billing Disposition and Condition Condition: STABLE Disposition: Home
== END 2018-10-15 09:05 | disposition home or self-care (01) ==
LOC: UCEAST 07:46
DX: J20.9 Acute bronchitis, unspecified (principal); Z88.1 Allergy status to other antibiotic agents; Z88.0 Allergy status to penicillin; F17.210 Nicotine dependence, cigarettes, uncomplicated
CPT/HCPCS: 99212; G0463

== ENCOUNTER 2019-06-24 08:47 | Emergency (ER) | payer OTHER ==
--- OUTSIDE RECORDS SUMMARY | 2019-06-24 08:51 | XMS REPORT | Continuity of Care Document ---
:1985 External Reference #:[id number] Author Name Naty Jolley MD (transmitted by agent of provider Blanca Harvey) Address [address] [place] [address] Care Team Providers Name Role Phone Gisele Kovacs MD - Internal Care Team Information Sr. Payroll Manager Medicine Naty Jolley MD - Student in an Care Team Information Sr. Payroll Manager [phone] Organized Health Care Education/Training Program Problems Active Problems Provider Date Neck pain Jacky Rojas M.D. Onset: 09/05/2016 Brachial neuritis Alfredo Pride MD Onset: 08/07/2016 Injury of shoulder region Alfredo Pride MD Onset: 08/07/2016 Disorder of shoulder Alfredo Pride MD Onset: 08/07/2016 Carpal tunnel syndrome of right wrist Alfredo Pride MD Onset: 08/07/2016 Lesion of ulnar nerve Alfredo Pride MD Onset: 08/07/2016 Social History Type Date Description Comments Sex Unknown ETOH Use Denies alcohol use Tobacco Use Start: Unknown Light tobacco smoker (10 or fewer cigarettes/day) Smoking Status Reviewed: 06/07/19 Light tobacco smoker (10 or fewer cigarettes/day) Exercise Type/Frequency Does not exercise Allergies, Adverse Reactions, Alerts Active Allergies Reaction Severity Comments Date Penicillin Urticaria 08/07/2016 Ceclor Urticaria 08/07/2016 Medications Active Medications SIG Qnty Indications Ordering Provider Date Omeprazole twice per day by 30capjuan francisco R12 Loly Joshi DO 06/07/[address] Tylenol as needed Unknown 325mg Tablets Control Unknown Immunizations Description No Information Available Vital Signs Date Vital Result Comment 06/07/2019 1:43pm Height 68.25 inches 5'8.25" Weight 271.38 lb Heart Rate 91 /min BP Systolic 128 mmHg BP Diastolic 80 mmHg Body Temperature 98.7 F O2 % BldC Oximetry 98 % BMI (Body Mass Index) 41.0 kg/m2 09/05/2016 10:20am Height 68.25 inches 5'8.25" Weight 280.00 lb Heart Rate 78 /min BP Systolic Sitting 130 mmHg BP Diastolic Sitting 80 mmHg Pain Level 6 BMI (Body Mass Index) 42.3 kg/m2 Results Test Date Facility Test Result H/L Range Note Xray 06/07/[address] [facility] [address] Abd/Pel W <pending> [address] [place] [address] [phone] Procedures Description No Information Available Medical Devices Description No Information Available Encounters Description No Information Available Assessments Date Code Description Provider 06/07/2019 R10.30 Lower abdominal pain, unspecified Naty Jolley MD 06/07/2019 R12 Heartburn Naty Jolley MD Plan of Treatment Future Appointment(s):07/21/2019 11:20 am - Fawn Mary MD at [facility] Internal Medicine - [facility]06/07/2019 - Naty Jolley MDR10.30 Lower abdominal pain, unspecifiedComments:We will do a CT abdomen to find out the cause.Please do blood tests today. Please call back if pain is not improving.Follow up:schedule appt for physical examR12 HeartburnNew Medication:Omeprazole 20 mg - twice per day by mouthComments:Trial of Omeprazole for 2 weeks and see response. Functional Status Description No Information Available Mental Status Description No Information Available Referrals Description No Information Available
[2019-06-24 09:00] VITALS: BP 126/84
--- NOTE | 2019-06-24 09:32 | UC ---
Respiratory Complaint HPI - HPI Summary HPI Summary: SEVERAL DAYS OF SINUS PRESSURE, CONGESTION, COUGH, SORE THROAT AND EAR FULLNESS. REPORTS ELEVATED TEMP AROUND 100 WITH SOME CHILLS. NO NAUSEA/ VOMITING. RECEIVED FLU SHOT 2 DAYS AGO. - History of Current Complaint Chief Complaint: UCGeneralIllness Stated Complaint: SINUS COMPLAINT Time Seen by Provider: 06/24/19 09:02 Hx Obtained From: Patient Hx Last Menstrual Period: 06/23/19 Onset/Duration: Gradual Onset, Lasting Days, Still Present Timing: Constant Severity Initially: Moderate Severity Currently: Moderate Pain Intensity: 0 Pain Scale Used: 0-10 Numeric Character: Cough: Nonproductive Aggravating Factors: Nothing Alleviating Factors: Nothing Associated Signs And Symptoms: Positive: Fever, Chills, URI, Nasal Congestion, Sinus Discomfort. Negative: Dyspnea, Wheezing - Allergies/Home Medications Allergies/Adverse Reactions: Allergies Allergy/AdvReac Type Severity Reaction Status Date / Time cefaclor [From Ceclor] Allergy Hives Verified 06/24/19 08:54 Penicillins Allergy Hives Verified 06/24/19 08:54 Home Medications: Home Medications Phenylephrine/Acetaminophn/Cpm [Sinus Congestion-Pain Caplet] 1 tab PO ONCE [History Confirmed 06/24/19] PMH/Surg Hx/FS Hx/Imm Hx Previously Healthy: Yes - Surgical History Surgical History: Yes Surgery Procedure, Year, and Place: T&A - Family History Known Family History: Positive: Cardiac Disease, Hypertension, Other - thyroid dz Family History: No FHx of ectopic . - Social History Alcohol Use: None Substance Use Type: None Smoking Status (MU): Light Every Day Tobacco Smoker Type: Cigarettes Amount Used/How Often: 1/2 PPD Length of Time of Smoking/Using Tobacco: 8 yrs Have You Smoked in the Last Year: Yes Household Exposure Type: Cigarettes - Immunization History Most Recent Influenza Vaccination: NONE Most Recent Tetanus Shot: UTD Most Recent Pneumonia Vaccination: None Hx Tetanus, Diphtheria Vaccination: Yes Vaccination Up to Date: Yes Review of Systems All Other Systems Reviewed And Are Negative: Yes Constitutional: Positive: Fever, Chills ENT: Positive: Sore Throat, Ear Ache, Nasal Discharge, Sinus Congestion Respiratory: Positive: Cough Cardiovascular: Positive: Negative Gastrointestinal: Positive: Negative Physical Exam Triage Information Reviewed: Yes Appearance: Well-Appearing, No Pain Distress, Well-Nourished Vital Signs: Initial Vital Signs Temp 97.9 F 06/24/19 08:56 Pulse 96 06/24/19 08:56 Resp 16 06/24/19 08:56 BP 126/84 06/24/19 08:56 Pulse Ox 98 06/24/19 08:56 Laboratory Tests 06/24/19 09:09 Group A Strep Rapid Negative Eyes: Positive: Conjunctiva Clear ENT: Positive: Hearing grossly normal, TMs normal, Uvula midline - EDEMATOUS. Negative: Pharyngeal erythema Neck: Positive: Supple, Nontender, No Lymphadenopathy Respiratory Exam: Normal Cardiovascular Exam: Normal Abdomen Description: Positive: Soft Musculoskeletal: Positive: No Edema Neurological: Positive: Alert Psychological: Positive: Age Appropriate Behavior Skin: Negative: Rashes Respiratory Course/Dx - Course Course Of Treatment: PATIENT HAS UVULITIS LIKELY A RESULT OF AN UPPER RESPIRATORY INFECTION. STREP NEGATIVE. ADVISED CONSERVATIVE MANAGEMENT WITH REST, HYDRATION, OTC ANTI- INFLAMMATORIES. WILL ALSO GIVE A SHORT COURSE OF PREDNISONE TO HELP WITH THE INFLAMMATION. FOLLOW-UP IF NEEDED. - Differential Dx/Diagnosis Provider Diagnosis: Uvulitis, Upper respiratory infection Discharge ED - Sign-Out/Discharge Documenting (check all that apply): Patient Departure All imaging exams completed and their final reports reviewed: No Studies - Discharge Plan Condition: Stable Disposition: HOME Prescriptions: predniSONE TAB* [Deltasone 20 MG TAB*] 40 mg PO DAILY #10 tab Patient Education Materials: Upper Respiratory Infection (ED), Uvulitis (ED) Referrals: Naty Jolley MD [Primary Care Provider] - If Needed Additional Instructions: YOUR SYMPTOMS ARE LIKELY VIRALLY MEDIATED AND SHOULD RESOLVE ON THEIR OWN WITH TIME. NO INDICATION FOR ANTIBIOTICS AT PRESENT. REST, HYDRATE, OTC MEDS NEEDED. WILL TREAT WITH PREDNISONE TO HELP WITH INFLAMMATION. CONSIDER TAKING AN OTC ANTIHISTAMINE SUCH CLARITIN OR ZYRTEC TO COVER FOR ANY ALLERGIC COMPONENT. SEEK FOLLOW-UP IF YOU ARE NOT IMPROVING OVER THE NEXT 1-2 WEEKS. USE OTC AFRIN FOR NASAL CONGESTION. 2 SPRAYS IN EACH NOSTRIL TWICE DAILY NEEDED. DO NOT USE FOR MORE THAN 3-4 DAYS IN A ROW TO PREVENT DEVELOPING REBOUND CONGESTION. GO TO THE ER WITHOUT FAIL IF YOU DEVELOP WORSENING SWELLING IN YOUR THROAT, ANY DIFFICULTY BREATHING, TONGUE/LIP SWELLING OR ANY OTHER CONCERNING SYMPTOMS. - Billing Disposition and Condition Condition: STABLE Disposition: Home
== END 2019-06-24 09:45 | disposition home or self-care (01) ==
LOC: UCEAST 08:47
DX: J06.9 Acute upper respiratory infection, unspecified (principal); F17.210 Nicotine dependence, cigarettes, uncomplicated; K12.2 Cellulitis and abscess of mouth; Z88.0 Allergy status to penicillin; Z88.1 Allergy status to other antibiotic agents
CPT/HCPCS: 87651; 99212; G0463

== ENCOUNTER 2019-06-29 08:11 | Emergency (ER) | payer OTHER ==
[2019-06-29 08:20] VITALS: BP 136/88
== END 2019-06-29 09:46 | disposition left against medical advice (07) ==
LOC: UCEAST 08:11
DX: Z53.21 Procedure and treatment not carried out due to patient leaving prior to being seen by health care provider (principal)